=== PATIENT | male | born 1980 | race Caucasian/White ===

== ENCOUNTER 2016-08-15 21:54 | Emergency (ER) | payer MEDICAID ==
[2016-08-16] MEDS ORDERED: CEFTRIAXONE 1 GM VIAL ONE (01:51)
[2016-08-16] MEDS ORDERED: SODIUM CHLORIDE 0.9% 100 ML IV ONE (01:52)
[2016-08-16] MEDS ORDERED: AMPICILLIN 2,000 MG in SODIUM CHLORIDE 0.9% 100 ML IV ONE (02:05)
[2016-08-16] MEDS ORDERED: SODIUM CHLORIDE 0.9% 1,000 ML ONE (03:26)
== END 2016-08-16 03:43 | disposition other institution (70) ==
LOC: ER 21:54
DX: I33.0 Acute and subacute infective endocarditis (principal); F19.10 Other psychoactive substance abuse, uncomplicated; Z79.82 Long term (current) use of aspirin; Z79.899 Other long term (current) drug therapy; Z79.4 Long term (current) use of insulin
CPT/HCPCS: 36415; 71010; 80053; 82553; 83880; 84484; 85025; 93005; 96365; 96367